=== PATIENT | female | born 1945 | race Caucasian/White ===

== ENCOUNTER 2021-12-11 13:17 | Day surgery (SDC) | payer OTHER ==
[2021-12-08 12:36] LABS: Protime INR 0.87
[2021-12-08 12:41] LABS: Hematocrit 37.3 % (36.0-45.0); Lymphocytes % 14.7 % (15.3-44.8); MPV 6.3 fL (7.6-11.3); RBC Red Blood Cell Count 3.84 M/uL (3.86-4.86)
[2021-12-08 12:47] LABS: BUN Blood Urea Nitrogen 10 mg/dL (7-18); Bicarbonate 27 mmol/L (21-32); Glucose Level 99 mg/dL (74-106); Potassium 3.9 mmol/L (3.5-5.1); Sodium Level 135 mmol/L (136-145)
--- NOTE | 2021-12-08 12:55 | RAD REPORT ---
EXAM DESCRIPTION: Marleni Pa And Lat (2 Views)12/08/2021 12:36 pm CLINICAL HISTORY: Preop/hypertension COMPARISON: None FINDINGS: Lungs are moderately hyperaerated. The lungs appear clear of acute infiltrate. The heart is normal size IMPRESSION: COPD without visualization of acute abnormality.
--- NOTE | 2021-12-09 12:46 | EKG ---
Test Date: 2021-12-08 Test Time: 11:57:01 Recreation Leader: NAYANA MEASUREMENT RESULTS: Intervals: Rate: 72 CA: 142 QRSD: 112 QT: 412 QTc: 451 [place]: P: 66 CA: 142 QRS: 9 T: 88 INTERPRETIVE STATEMENTS: Normal sinus rhythm Incomplete right bundle branch block Nonspecific ST and T wave abnormality Abnormal ECG Compared to ECG 06/10/2015 11:06:03 Incomplete right bundle-branch block now present ST (T wave) deviation now present Left-axis deviation no longer present Electronically Signed On 12-09-21 12:44:57 [employer] by Duke Millan
[~2021-12-11 13:17] MED LIST: NA CHLORIDE 0.9% 500 ML ONE
[2021-12-11] MEDS ORDERED: LIDOCAINE 1% 20 ML MDV ONE (13:28)
[2021-12-11] MEDS ORDERED: HEPA 1000U/500MLS 2,000 UNIT/1,000 ML BAG IV ONE (13:28)
[2021-12-11] MEDS ORDERED: FENTANYL CITR 100 MCG/2 ML ONE (14:53)
[2021-12-11] MEDS ORDERED: ATROPINE SULF 1 MG/10 ML SYR IV ONE (14:54)
[2021-12-11] MEDS ORDERED: MIDAZOLAM HCL 2 MG/2 ML INJ ONE (14:54)
[2021-12-11] MEDS ORDERED: HEPARIN 5000 UNIT/ML 1 ML VIAL ONE (14:54)
[2021-12-11 19:10] VITALS: BP 131/56; O2SAT 94
--- NOTE | 2021-12-12 02:32 | OP ---
Date of Procedure: 12/11/2021 Surgeon: LAUREN KING Procedure Performed: 1.Selective bilateral carotid angiogram. 2.Distal aortogram with runoff and peripheral angiogram. Access: Right femoral artery, 4-Tanzanian closed with manual pressure. Complications: None. Bleeding: Less than 10 mL. Anesthesia: Total sedation time was 20 minutes. Description Of Procedure: After risks, benefits, alternatives were explained, patient agreed to proc eed and signed informed consent. The patient was brought into the cardiac catheterization laboratory , prepped and draped in usual sterile fashion. Then, I accessed right femoral artery using micropunc ture kit, ultrasound guidance and fluoroscopy and then placed a 4-Tanzanian pinnacle sheath and took 4-F rench JL4 catheter into the aortic root and then catheter was advanced into the brachiocephalic arter y and then into the right common carotid artery. Selective angiogram was obtained and then the song ter was used to engage the left common carotid artery and standard views were taken and then the cath eter was exchanged for a pigtail that was placed in distal aorta into the distal aortogram with a run off. I then removed the catheter and removed the sheath and manual pressure was used for hemostasis. Findings: Carotid angiogram: 1.The right common carotid artery is normal and right internal and external carotid arteries are nor mal. 2.The left common carotid artery has a distal 50% to 60% stenosis and the left internal carotid leonard ry that has about 50% stenosis, otherwise normal angiogram. Peripheral angiogram: 1.Distal aorta, there is about 40% stenosis. 2.The left common iliac has ostial to proximal 50% stenosis, the right common iliac has 40% diffuse stenosis. 3.Bilateral femoral arteries are normal. 4.Bilateral profunda are normal. 5.Bilateral SFA showing very mild 10% to 20% diffuse disease. 6.Mxlfs-ydd-wlrz flow bilaterally exists all the way to the feet and with 3-vessel runoff, however t here is diffuse moderate disease in all vessels ranging from 30% to 40%. Conclusion: 1.Moderate carotid artery stenosis. 2.Moderate peripheral vascular disease. Plan: Medical management. SR/MODL Voice ID: [id number] Report ID: [id number]
== END 2021-12-11 19:11 | disposition home or self-care (01) ==
LOC: CCL 13:17
PROVIDERS: ATTEND Internal Medicine
DX: I65.22 Occlusion and stenosis of left carotid artery (principal); I70.203 Unspecified atherosclerosis of native arteries of extremities, bilateral legs; I10 Essential (primary) hypertension; E78.5 Hyperlipidemia, unspecified; F17.210 Nicotine dependence, cigarettes, uncomplicated; Z20.822 Contact with and (suspected) exposure to COVID-19; Z82.49 Family history of ischemic heart disease and other diseases of the circulatory system
CPT/HCPCS: 93005; 85025; 80048; 36415; 85610; 85730; 71046; 75630; 75625; 36215; 36222; U0003; C1893; J2250; J3010; J7040; J1644; 93454

== ENCOUNTER 2022-11-29 07:55 | Day surgery (SDC) | payer OTHER ==
[2022-11-29] MEDS ORDERED: FENTANYL CITR 100 MCG/2 ML ONE ×2 (08:16→08:58)
[2022-11-29] MEDS ORDERED: MIDAZOLAM HCL 2 MG/2 ML INJ ONE ×2 (08:16→08:47)
[2022-11-29] MEDS ORDERED: propofoL 200 MG/20 ML VIAL IV ONE ×2 (08:16→08:46)
[2022-11-29] MEDS ORDERED: ONDANSETRON 4 MG/2 ML VIAL ONE ×2 (08:17→08:49)
[2022-11-29] MEDS ORDERED: LIDOCAINE 2% MPF 5 ML VIAL ONE ×2 (08:17→08:48)
[2022-11-29] MEDS ORDERED: ROCURONIUM 50 MG/5 ML VIAL IV ONE (08:58)
[2022-11-29] MEDS ORDERED: GLYCOPYRROLATE 0.2 MG/ML SYR ONE (08:59)
[2022-11-29] MEDS ORDERED: NEOSTIGMINE 1 MG/ML -10 ML VIAL ONE (09:01)
[2022-11-29] MEDS ORDERED: ALBUTEROL 2.5 MG/3 ML NEB SOL ONE (10:02)
[2022-11-29] MEDS ORDERED: LIDOCAINE 4% TOP SOLUTION ONE (10:10)
[2022-11-29] MEDS: MIDAZOLAM HCL 2 MG/2 ML INJ ONE ×2 (10:12→10:50)
[2022-11-29] MEDS ORDERED: HYDROCODONE/APAP 5/325 MG TAB ONE (11:53)
[2022-11-29 12:21] VITALS: BP 108/84; TEMP 97.3; O2SAT 96
--- NOTE | 2022-11-30 19:23 | OP ---
Date of Procedure: 11/29/2022 Surgeon: JANETTE MURILLO Preoperative Diagnoses: 1.Complete right vocal cord paralysis. 2.Chronic hoarseness with episodes of aphonia. Postoperative Diagnoses: 1.Complete right vocal cord paralysis. 2.Chronic hoarseness with episodes of aphonia. Procedure: Direct laryngoscopy with telescopic exam and injection of Prolaryn long lasting gel into right vocal cord under direct visualization with the scope. Anesthesia: General endotracheal anesthesia was administered. Estimated Blood Loss: None. Specimens: None. Findings: Short bilateral vocal cords, true and false with short subglottis. The patient had mild r ight vocal cord atrophy. Complications: None. Disposition: Stable. The patient tolerated the procedure well. Indication For Procedure: The patient is a pleasant 77-year-old female who has been experiencing chr onic coarseness with periods of aphonia secondary to idiopathic right vocal cord paralysis. Extensiv e scanning was done to rule out brain, neck, and lung lesion and I did not detect any neoplasms in an y of the areas and the patient's voice was continuing to worsen despite vocal exercises and vocal hyg iene. These were indications to bring the patient to operative suite for the above-mentioned procedu re. She understood, all questions were answered. Risks versus benefits and complications were expla ined in detail and a consent form was signed, which was placed in the chart. Description Of Procedure: The patient was transferred from the preoperative holding area to the oper ative suite by the Department of Anesthesia and placed on the operating table supine, sedated, and in tubated in normal fashion. Table was rotated 90 degrees. A shoulder roll was not needed. At first, the patient was intubated with a #7 tube and then I switched the tube to a much smaller diameter tub e due to her small glottis. We changed the tube to a #5 endotracheal tube and she tolerated it well. Once the patient was intubated with the appropriate tube, I was able to insert a rigid laryngoscope into the right oral commissure and direct it along the endotracheal tube and suspended it from [place] stand. Once we secured the tube in place, I secured it to the left oral commissure in order to expos e the right vocal process of the true vocal fold. I utilized a telescope to examine the glottis and focus on the area where my injection would be. I then injected approximately 1.0 mL of Prolaryn calc ium hydroxyapatite long lasting gel just lateral to the right vocal process and I was able to get exc ellent medialization of the right true vocal fold. The patient was then de-suspended from Garcia stand and the laryngoscope was removed. The patient's jaw was checked and found to be in proper alignment . She was then transferred to the PACU. The patient did have quivering of the left vocal cord with wheezing noted. The patient was given albuterol treatment in PACU and her condition improved, where she was able to be discharged soon thereafter. She will be discharged home with complete vocal rest for 3 days and then she may start vocal exercises on day 4 and she will follow up in 1 to 2 weeks or sooner if needed. NELLIE/AUSTEN Voice ID: [id number] Report ID: [id number]
== END 2022-11-29 12:12 | disposition home or self-care (01) ==
LOC: OR 07:55
PROVIDERS: ATTEND Otolaryngology Facial Plastic Surgery
PROC: 3E0F8GC Introduction of Other Therapeutic Substance into Respiratory Tract, Via Natural or Artificial Opening Endoscopic (ICD-10-PCS; principal; 2022-11-29 09:30)
DX: J38.01 Paralysis of vocal cords and larynx, unilateral (principal); R49.0 Dysphonia; R49.1 Aphonia
CPT/HCPCS: 31571; J2704; J2710; J7613; J2001; J2250; J3010; J2405

== ENCOUNTER 2024-03-18 10:08 | Day surgery (SDC) | payer OTHER ==
[2024-03-11 10:48] LABS: Absolute Basophils 0.1 K/uL (0-0.5); Absolute Eosinophils 0.1 K/uL (0-0.5); Absolute Monocytes 0.9 K/uL (0.1-1.3); Absolute Neutrophil 5.6 K/uL (1.8-8.0); Basophils % 0.9 % (0-1.3); Eosinophils % 1.3 % (0-4.4); Hematocrit 37.2 % (36.0-45.0); Hemoglobin 11.8 g/dL (12.0-15.0); Lymphocytes % 12.5 % (15.3-44.8); MCHC 31.7 g/dL (32.0-36.0); MCV 94.8 fL (80-100); MPV 6.6 fL (7.6-11.3); Monocytes % 11.7 % (3.3-12.3); Neutrophils % 73.6 % (41.7-73.7); Platelets 461 thou/uL (152-406); RBC Red Blood Cell Count 3.92 M/uL (3.86-4.86); Red Cell Distribution Width 13.1 % (12.1-15.2)
[2024-03-11 11:10] LABS: Anion Gap 6.5 mEq/L (5.0-15.0); Potassium 3.5 mEq/L (3.5-5.1)
--- NOTE | 2024-03-11 16:31 | EKG ---
Test Date: 2024-03-11 Test Time: 10:29:13 Electronic Page Makeup System Operator: UDAY MEASUREMENT RESULTS: Intervals: Rate: 70 MT: 140 QRSD: 98 QT: 416 QTc: 449 [place]: P: 76 MT: 140 QRS: 50 T: 62 INTERPRETIVE STATEMENTS: Normal sinus rhythm Low voltage QRS Incomplete right bundle branch block Nonspecific T wave abnormality Abnormal ECG Compared to ECG 12/08/2021 11:57:01 Low QRS voltage now present T-wave abnormality now present ST (T wave) deviation no longer present Electronically Signed On 03-11-24 16:30:30 CDT by Demetrio Downs
[2024-03-18 11:08] VITALS: O2SAT 96
[2024-03-18] MEDS ORDERED: propofoL 200 MG/20 ML VIAL IV ONE (11:16)
[2024-03-18] MEDS ORDERED: LIDOCAINE 1% MPF 5 ML VIAL ONE (11:16)
[2024-03-18] MEDS ORDERED: Phenylephrine HCl 10 MG/ML 1 ML VIAL ONE (11:16)
[2024-03-18] MEDS: CEFAZOLIN SODIUM 1 GM/VIAL ONE (11:42)
[2024-03-18] MEDS: Ringers Lactate 1,000 ML IV ONE (11:45)
[2024-03-18 13:03] VITALS: BP 101/55; TEMP 97.9
== END 2024-03-18 12:59 | disposition home or self-care (01) ==
LOC: OR 10:08
PROVIDERS: ATTEND Surgery
PROC: 0DH63UZ Insertion of Feeding Device into Stomach, Percutaneous Approach (ICD-10-PCS; principal; 2024-03-18 12:00)
DX: E46 Unspecified protein-calorie malnutrition (principal); R13.10 Dysphagia, unspecified; C32.1 Malignant neoplasm of supraglottis
CPT/HCPCS: 93005; 85025; 80048; 36415; 43246; J2704; J2001; J7120; J0690; J2371